=== PATIENT | female | born 1990 | race Caucasian/White ===

== ENCOUNTER 2021-01-27 21:12 | Emergency (ER) | payer MEDICAID ==
[~2021-01-27] VITALS: Ht 170.2 cm; Wt 109.0 kg
[2021-01-27] MEDS ORDERED: IBUPROFEN 600MG TABLET PO STA (22:43)
[2021-01-27 23:17] VITALS: BP 153/79
[2021-01-27] MEDS ORDERED: NAPR-681 PO (23:45)
== END 2021-01-27 23:54 | disposition home or self-care (01) ==
LOC: ER 21:12
DX: S80.02XA Contusion of left knee, initial encounter (principal); M25.562 Pain in left knee; W01.0XXA Fall on same level from slipping, tripping and stumbling without subsequent striking against object, initial encounter; Y93.89 Activity, other specified; Y92.512 Supermarket, store or market as the place of occurrence of the external cause; Z88.5 Allergy status to narcotic agent
CPT/HCPCS: 73562; 81025; 99283

== ENCOUNTER 2021-09-08 00:41 | Emergency (ER) | payer MEDICAID ==
[~2021-09-08] VITALS: Ht 170.2 cm; Wt 145.1 kg
[~2021-09-08 00:41] MED LIST: ACET-2708 MT; NAPR-681 PO
[2021-09-08] MEDS ORDERED: KETOROLAC 15MG/ML VIAL IM ONE (03:00)
[2021-09-08] MEDS ORDERED: DIAZEPAM 5 MG TABLET PO ONE (03:00)
[2021-09-08 03:16] VITALS: BP 150/80
[2021-09-08] MEDS ORDERED: NAPR-1164 MT (05:35)
[2021-09-08] MEDS ORDERED: CYCL10TA21 MT (05:35)
== END 2021-09-08 05:40 | disposition home or self-care (01) ==
LOC: ER 00:41
DX: M54.50 Low back pain, unspecified (principal); I51.9 Heart disease, unspecified; Z98.890 Other specified postprocedural states; Z88.5 Allergy status to narcotic agent; Y93.01 Activity, walking, marching and hiking
CPT/HCPCS: 96372; 99283; J1885

== ENCOUNTER 2023-08-07 18:38 | Emergency (ER) | payer MEDICAID ==
[~2023-08-07] VITALS: Ht 177.8 cm; Wt 113.0 kg
[~2023-08-07 18:38] MED LIST changes: +CYCL10TA21 MT; +NAPR-1164 MT
[2023-08-07 18:46] VITALS: BP 129/85; PULSE 78; RESP 20; TEMP 98.5; O2SAT 100
[2023-08-07 21:39] LABS: CLARITY URINE CLOUDY (CLEAR); COLOR URINE DARK YELLOW (YELLOW); GLUCOSE URINE NEGATIVE (NEGATIVE); KETONES URINE NEGATIVE (NEGATIVE); LEUKOCYTE ESTERASE URINE NEGATIVE (NEGATIVE); NITRITE URINE NEGATIVE (NEGATIVE); OCCULT BLOOD URINE NEGATIVE (NEGATIVE); PH URINE 5.5 (4.5-8.0); PROTEIN URINE TRACE (NEGATIVE); SPECIFIC GRAVITY URINE 1.033 (1.005-1.030); UROBILINOGEN URINE 0.2 E.U./dL (0.2-1.0)
[2023-08-07 22:19] LABS: BACTERIA URINE 2+; MUCUS URINE 2+ /lpf (< = 2+); RBC URINE 0-2 /hpf (0-2); SQUAMOUS EPITHELIAL CELL URINE 1+ /lpf (RARE/1+); WBC URINE 0-2 /hpf (0-2)
[2023-08-07 22:22] LABS: CALCIUM OXALATE CRYSTALS URINE 2+ /lpf
== END 2023-08-08 00:02 | disposition home or self-care (01) ==
LOC: ER 18:38
DX: R19.7 Diarrhea, unspecified (principal); Z87.19 Personal history of other diseases of the digestive system; Z98.890 Other specified postprocedural states
CPT/HCPCS: 74176; 81003; 81025; 99284

== ENCOUNTER 2024-05-15 20:27 | Emergency (ER) | payer MEDICAID ==
[~2024-05-15] VITALS: Ht 170.2 cm; Wt 109.0 kg
[2024-05-15 20:34] VITALS: BP 161/82; PULSE 83; RESP 16; O2SAT 100
[2024-05-15] MEDS ORDERED: ACET-2708 MT (23:00)
[2024-05-15 23:18] VITALS: TEMP 98.2
[2024-05-15] MEDS: ACETAMINOPHEN 325MG TABLET PO ONE (23:18)
== END 2024-05-15 23:23 | disposition home or self-care (01) ==
LOC: ER 20:27
DX: M25.532 Pain in left wrist (principal); Z88.5 Allergy status to narcotic agent; Z98.890 Other specified postprocedural states
CPT/HCPCS: 73110; 99283